=== PATIENT | female | born 1990 | race Caucasian/White ===

== ENCOUNTER → 2017-11-01 18:09 | Outpatient (CLI) | payer OTHER, SELFPAY ==
[2017-11-06 12:09] LABS: HPV Reflexed? NOT INDICATED
== END ==
PROVIDERS: Visit Provider Obstetrics & Gynecology
DX: Z12.4 Encounter for screening for malignant neoplasm of cervix (principal); Z01.419 Encounter for gynecological examination (general) (routine) without abnormal findings
CPT/HCPCS: 88175; G0145

== ENCOUNTER → 2018-01-17 09:19 | Outpatient (CLI) | payer OTHER, SELFPAY ==
[2018-01-17 13:19] LABS: Hematocrit 41.8 % (37-47); Hemoglobin 13.4 g/dl (12.0-15.0); Mean Corp Hgb Conc 32.1 g/gl (32-36); Mean Corpuscular Hgb 28.8 pg (27.0-32.0); Mean Corpuscular Volume 89.9 fL (81-99); Mean Platelet Vol. 11.3 fl (6.2-12.0); Platelet Count 305 K/mm3 (150-450); RBC Distribution Width SD 42.2 fl (35.1-43.9); Red Blood Count 4.65 M/mm3 (4.2-5.4); White Blood Count 8.8 K/mm3 (4.4-11.0)
[2018-01-17 13:29] LABS: Scan Indicated on CBC? Y/N NO
[2018-01-17 13:39] LABS: Hemoglobin A1c 5.9 % (4.2-6.3); Progesterone Level 0.52 ng/mL (See Comment); Vitamin D,25 Hydroxy 12.6 ng/mL (29.95-100.01)
[2018-01-17 14:56] LABS: ALB/GLOB Ratio 0.9 RATIO (0.9-2.4); AST(SGOT) 23 U/L (15-37); Alanine Aminotransfer ALT/SGPT 35 U/L (13-56); Albumin, Serum 3.7 g/dL (3.2-5.0); Alkaline Phosphatase 70 U/L (45-117); Anion Gap 8 (5-15); BUN 12 mg/dL (7-18); BUN/Creat Ratio 20.9 RATIO (10-20); Calcium,Total 8.6 mg/dL (8.5-10.1); Chloride 107 mmol/L (98-107); Cholesterol 219 mg/dL (200); Creatinine, Serum 0.57 mg/dL (0.55-1.02); EST Glomerular Filtration Rate 135 mL/min (>60); Est Glom Filt Rate - Afr Amer 163 mL/min (>60); Estradiol 43.2 pg/mL; Follicle Stimulating Hormone 6.1 mIU/mL; Free T3 3.1 pg/mL (2.18-3.98); Globulin 4.3 g/dL (2.2-4.2); Glucose 92 mg/dL (74-106); High Density Lipoprotein 39 mg/dL; Prolactin 7.2 ng/mL; Sodium Level 142 mmol/L (136-145); T4 Free Direct 0.91 ng/dL (0.76-1.46); Thyroid Stim Hormone (TSH) 1.04 uIU/mL (0.358-3.74); Triglycerides 167 mg/dL; Very Low Density Lipoprotein 33 mg/dL (5-40)
[2018-01-18 12:13] LABS: DHEA Sulfate 220.3 ug/dL (84.8-378.0)
[2018-01-19 10:15] LABS: Sex Hormone-binding Globulin 29.7 nmol/L (24.6-122.0)
[2018-01-21 17:55] LABS: GGTP 26 U/L (5-55); Luteinizing Hormone 1.8 mIU/mL
[2018-01-24 14:26] LABS: 17-Hydroxyprogesterone < 10 ng/dL (.)
== END ==
PROVIDERS: Visit Provider Obstetrics & Gynecology
DX: N91.4 Secondary oligomenorrhea (principal); Z86.32 Personal history of gestational diabetes; Z68.42 Body mass index [BMI] 45.0-49.9, adult
CPT/HCPCS: 36415; 80053; 80061; 82306; 82533; 82627; 82670; 82977; 83001; 83002; 83036; 83498; 84144; 84146; 84270; 84403; 84439; 84443; 84481; 85027; 82626

== ENCOUNTER → 2019-06-02 14:14 | Outpatient (CLI) | payer OTHER, SELFPAY ==
[2019-06-02 20:50] LABS: Chlamydia Trachomatis by PCR Negative (Negative); Neisserai gonorrhoeae by PCR Negative (Negative); Probe Check PASS; Sample Adequacy Control PASS; Specimen Processing Control PASS
== END ==
PROVIDERS: Visit Provider Obstetrics & Gynecology
DX: Z11.3 Encounter for screening for infections with a predominantly sexual mode of transmission (principal)
CPT/HCPCS: 87491; 87591

== ENCOUNTER → 2019-06-10 09:52 | Outpatient (CLI) | payer OTHER, SELFPAY ==
[2019-06-10 10:43] LABS: Absolute Lymphocyte Count 1.89 X10^3/uL (0.83-4.51); Absolute Neutrophil Count 8.4 X10^3/uL (2.0-7.7); Basophil# 0.04 X10^3/uL; Basophil% 0.4 % (0-1); Eosinophil# 0.17 X10^3/uL; Eosinophils% 1.5 % (0-5); Hematocrit 42.2 % (37-47); Hemoglobin 14.4 g/dL (12.0-15.0); Lymphocyte # 1.89 X10^3/ul (4.0); Lymphocyte % 16.7 % (19-41); Mean Corp Hgb Conc 34.1 g/dL (32-36); Mean Corpuscular Hgb 29.6 pg (27.0-32.0); Mean Corpuscular Volume 86.8 fL (81-99); Mean Platelet Vol. 11.1 fl (6.2-12.0); Monocyte% 6.2 % (0-10); NRBC Flagged by Analyzer 0 % (0-5); Neutrophil # 8.44 X10^3/uL (2.7-7.7); Neutrophil % 74.4 % (47-70); Platelet Count 287 K/mm3 (150-450); RBC Distribution Width CV 12.2 % (11.6-14.6); RBC Distribution Width SD 38.7 fl (35.1-43.9); Red Blood Count 4.86 M/mm3 (4.2-5.4); White Blood Count 11.3 K/mm3 (4.4-11.0)
[2019-06-10 10:45] LABS: Color, Urine Yellow (Yellow); Glucose, Dipstick Normal (Normal); Ketone-Dipstick Negative (Negative); Leukocyte Esterase-Dipstick Negative /ul (Negative); Nitrite-Dipstick Negative (Negative); Occult Blood-Urine Negative /ul (Negative); Protein-Dipstick Negative (Negative); Urine Bilirubin Dipstick Negative (Negative); Urine Clarity Clear (Clear); Urine Urobilinogen Normal (Normal)
[2019-06-10 10:56] LABS: Amphetamine Urine VISTA NEGATIVE (<1000 ng/mL); Barbiturate Urine VISTA NEGATIVE (< 200 ng/mL); Benzodiazepine Urine VISTA NEGATIVE (< 200 ng/mL); Cocaine Urine VISTA NEGATIVE (< 300 ng/mL); Ecstacy Urine VISTA NEGATIVE (< 500 ng/mL); Methadone Urine VISTA NEGATIVE (< 300 ng/mL); PCP Urine VISTA NEGATIVE (< 25 ng/mL); THC Urine VISTA POSITIVE (< 50 ng/mL); Vista UDS pH Range 6
[2019-06-10 11:04] LABS: Glucose Challenge Gest 1H 50g 171 mg/dL (70-140); Thyroid Stim Hormone (TSH) 1.16 uIU/mL (0.358-3.74)
[2019-06-10 12:10] LABS: HIV - WCH Non-Reactive (Nonreactive); Hepatitis B Surface Antigen Non-Reactive (Nonreactive); Hepatitis C Antibody Non-Reactive (Nonreactive); Rubella IgG 22.4 IU/mL
[2019-06-10 16:20] LABS: Vitamin D,25 Hydroxy 14.1 ng/mL (29.95-100.01)
[2019-06-18 01:48] LABS: Prenatal RPR NONREACTIVE (NONREACTIVE)
== END ==
PROVIDERS: Visit Provider Obstetrics & Gynecology
DX: Z34.81 Encounter for supervision of other normal pregnancy, first trimester (principal)
CPT/HCPCS: 36415; 80307; 81002; 82306; 82950; 84443; 85025; 86703; 86762; 86803; 87340

== ENCOUNTER → 2019-08-27 06:55 | Outpatient (CLI) | payer OTHER, SELFPAY ==
[2019-08-27 08:19] LABS: Glucose GTT-Gestation. Fasting 88 mg/dL (<105)
[2019-08-27 08:43] LABS: Glucose GTT-Gestational 1 Hr 210 mg/dL (<190)
[2019-08-27 10:07] LABS: Glucose GTT-Gestational 2 Hr 199 mg/dL (<165)
[2019-08-27 11:06] LABS: Glucose GTT-Gestational 3 Hr 89 L (<145)
== END ==
PROVIDERS: Referring Provider Obstetrics & Gynecology; Visit Provider Obstetrics & Gynecology
DX: O24.912 Unspecified diabetes mellitus in pregnancy, second trimester (principal); Z3A.00 Weeks of gestation of pregnancy not specified
CPT/HCPCS: 36415; 82951; 82952

== ENCOUNTER 2019-10-06 15:30 | Outpatient (RCR) | payer OTHER, SELFPAY | END 2019-10-06 23:59 | LOC: DC 15:30 | PROVIDERS: Visit Provider Obstetrics & Gynecology | DX: Z71.3 Dietary counseling and surveillance (principal); O24.419 Gestational diabetes mellitus in pregnancy, unspecified control | CPT/HCPCS: 97802 ==

== ENCOUNTER 2019-10-13 11:45 | Outpatient (RCR) | payer OTHER, SELFPAY | END 2019-11-05 23:59 | LOC: DC 11:45 | PROVIDERS: Visit Provider Obstetrics & Gynecology | DX: Z71.3 Dietary counseling and surveillance (principal); O24.419 Gestational diabetes mellitus in pregnancy, unspecified control; Z3A.00 Weeks of gestation of pregnancy not specified ==

== ENCOUNTER 2019-12-01 11:33 | Outpatient (CLI) | payer OTHER, SELFPAY ==
[2019-12-01 11:49] VITALS: BMI 44.1
[2019-12-01 11:58] VITALS: BP 135/66; PULSE 102; O2SAT 92
[2019-12-01 12:30] LABS: Mucous, Urine 0 SEEN /hpf (<or=2+)
[2019-12-01 12:50] LABS: Color, Urine Yellow (Yellow); Glucose, Dipstick Normal (Normal); Ketone-Dipstick Negative (Negative); Leukocyte Esterase-Dipstick 100 /ul (Negative); Nitrite-Dipstick Negative (Negative); Occult Blood-Urine Negative /ul (Negative); Protein-Dipstick Negative (Negative); Urine Bilirubin Dipstick Negative (Negative); Urine Clarity Clear (Clear); Urine Urobilinogen Normal (Normal)
[2019-12-01 12:56] VITALS: PULSE 97; TEMP 36.9
[2019-12-01 12:57] VITALS: BP 138/69; PULSE 97
[2019-12-01 13:08] LABS: Bacteria 3+ /hpf (None Seen); Red Blood Cells-Urine 0-5 SEEN /hpf (0-5); Squamous Epithelial Cells - UA 0-5 SEEN /hpf (5-10); White Blood Cells 0-5 SEEN /hpf (0-5)
--- NOTE | 2019-12-01 17:00 | OB.TRI.HP_ITS ---
- Problem List (1) Decreased movement Status: Acute Qualifiers: Fetus number: single or unspecified fetus Trimester: third trimester Qualified Code(s): O36.8130 - Decreased movements, third trimester, not applicable or unspecified (2) 32 weeks gestation of Status: Acute History of Present Illness Date of Service: 12/01/19 Was patient seen by the physician?: Yes Reason For Visit: NON STRESS TEST Date of Service: 12/01/19 Final DODIE: 01/25/20 Gestational age: 32 Weeks and 1 Days History of Present Illness: Called into office with decreased FM and was advised to go to for NST Allergies ferrous fumarate [From 1 + Iron] Allergy (Verified 12/01/19 12:06) Rash folic acid [From 1 + Iron] Allergy (Verified 12/01/19 12:06) Rash Penicillins Allergy (Verified 12/01/19 12:05) Rash vit,tx calc,iron,folic acd(less thn 1 mg) [From 1 + Iron] Allergy (Verified 12/01/19 12:06) Rash vitamins with calcium [From 1 + Iron] Allergy (Verified 12/01/19 12:06) Rash Laboratory Studies: Laboratory Tests 12/01/19 Range/Units 12:15 Urine Color Yellow (Yellow) Urine Clarity Clear (Clear) Urine pH 7.0 (5.0 - 8.0) Ur Specific Eagar 1.010 (1.002-1.030) Urine Protein Negative (Negative) mg/dl Urine Glucose (UA) Normal (Normal) mg/dl Urine Ketones Negative (Negative) mg/dl Urine Occult Blood Negative (Negative) /ul Urine Nitrite Negative (Negative) Urine Bilirubin Negative (Negative) mg/dL Urine Urobilinogen Normal (Normal) mg/dl Ur Leukocyte Esterase 100 H (Negative) /ul Urine RBC 0-5 SEEN (0-5) /hpf Urine WBC 0-5 SEEN (0-5) /hpf Ur Squamous Epith Cells 0-5 SEEN (5-10) /hpf Urine Bacteria 3+ (None Seen) /hpf Urine Mucus 0 SEEN (<or=2+) /hpf Review of Systems Constitutional: Denies: Chills, Fever, Weight Change HEENT: Denies: Head Aches, Sinus Congestion, Sinus Drainage Cardiovascular: Denies: Chest Pain, Palpitations Respiratory: Denies: Cough, Shortness of breath at rest, Sputum production Gastrointestinal: Reports: Abdominal Pain - lower abdominal, ligament pain. Denies: Nausea, Vomiting Genitourinary: Denies: Dysuria Musculoskeletal: Denies: Joint Pain, Joint Tenderness Skin: Denies: Rash, Wounds Neurological: Denies: Numbness, Tingling, Focal weakness Psychiatric: Denies: Anxiety, Depression, Homicidal Ideations, Suicidal Ideations Hematologic/ Lymphatic: Denies: Easy Bruising, Easy Bleeding Physical Exam Vitals: Vital Signs Temp Pulse BP Pulse Ox 98.5 F 97 138/69 H 92 12/01/19 12:56 12/01/19 12:57 12/01/19 12:57 12/01/19 11:58 General: Alert, Oriented x3, No apparent distress HEENT: Atraumatic, Normocephalic. Negative for: Thyromegaly, Lymphadenopathy Cardiovascular: Regular rate, Regular Rhythm Lungs: Clear to auscultation Abdomen: Bowel Sounds Present, Gravid Neurological: Deep Tendon Reflexes 2+/4 and Symmetrical, Neuro grossly intact DIRECTOR OF ACQUISITION MARKETING: Normal external genitalia. Negative for: Vulvar lesions Estimated gestational size: Appropriate for gestational size Presentation: Cephalic NST - FHR Rate Baby A Baseline: 130 Variability:: Moderate Accelerations:: 15 x 15 Decelerations:: None NST Reactive:: Yes FHR Category:: Category I Uterine Activity:: quiet Impression/Plan A/P: at 32 weeks gestation here with decreased FM Upon arrival has +FM NST reactive Category I No uterine contractions noted Education given on round ligament pain and discomfort To follow up in office as needed
== END 2019-12-01 13:00 | disposition home or self-care (01) ==
LOC: WPOUT 11:35 → WP 11:38
PROVIDERS: Obstetrics & Gynecology; Referring Provider Obstetrics & Gynecology; Visit Provider Obstetrics & Gynecology
DX: O36.8130 Decreased fetal movements, third trimester, not applicable or unspecified (principal); Z3A.32 32 weeks gestation of pregnancy; Z88.0 Allergy status to penicillin; O26.893 Other specified pregnancy related conditions, third trimester; R10.2 Pelvic and perineal pain
CPT/HCPCS: 59025; 59050; 81001; 87086; 87088; 99218; G0378

== ENCOUNTER → 2019-12-09 15:53 | Outpatient (CLI) | payer OTHER, SELFPAY ==
[2019-12-01 11:49] VITALS: BMI 44.1
[2019-12-09 17:00] LABS: Hematocrit 39.7 % (37-47); Hemoglobin 13.2 g/dL (12.0-15.0); Mean Corp Hgb Conc 33.2 g/dL (32-36); Mean Corpuscular Hgb 28.9 pg (27.0-32.0); Mean Corpuscular Volume 86.9 fL (81-99); Mean Platelet Vol. 12.1 fl (6.2-12.0); Platelet Count 234 K/mm3 (150-450); RBC Distribution Width CV 12.4 % (11.6-14.6); RBC Distribution Width SD 38.5 fl (35.1-43.9); Red Blood Count 4.57 M/mm3 (4.2-5.4); White Blood Count 12.4 K/mm3 (4.4-11.0)
[2019-12-09 17:29] LABS: ALB/GLOB Ratio 0.6 RATIO (0.9-2.4); AST(SGOT) 13 U/L (15-37); Alanine Aminotransfer ALT/SGPT 18 U/L (13-56); Albumin, Serum 2.7 g/dL (3.2-5.0); Alkaline Phosphatase 102 U/L (45-117); Anion Gap 10 (5-15); BUN 6 mg/dL (7-18); BUN/Creat Ratio 15.7 RATIO (10-20); Calcium,Total 8.7 mg/dL (8.5-10.1); Chloride 109 mmol/L (98-107); Creatinine, Serum 0.38 mg/dL (0.55-1.02); EST Glomerular Filtration Rate 214 mL/min (>60); Est Glom Filt Rate - Afr Amer 259 mL/min (>60); Globulin 4.5 g/dL (2.2-4.2); Glucose 81 mg/dL (74-106); Potassium 3.6 mmol/L (3.5-5.1); Protein, Total 7.2 g/dL (6.4-8.2); Sodium Level 139 mmol/L (136-145); Uric Acid 5.2 mg/dL (2.6-6.0)
== END ==
PROVIDERS: Visit Provider Obstetrics & Gynecology
DX: O14.13 Severe pre-eclampsia, third trimester (principal); Z3A.00 Weeks of gestation of pregnancy not specified
CPT/HCPCS: 36415; 80053; 84550; 85027

== ENCOUNTER 2019-12-23 10:11 | Outpatient (RCR) | payer OTHER, SELFPAY ==
[2019-12-22 10:42] VITALS: BMI 44.1
--- NOTE | 2019-12-23 11:04 | HP.PTEVAL_ITS ---
Patient's Visit Information YANA ROMAN is a 29 year old F referred to Physical Therapy by Dr. Heather Sumner MD with a diagnosis of back pain and pelvic pain. Date of Evaluation: 12/23/19 Physical Therapist: Rafael Fleming, DPT, OCS, CSCS - Visit Plan Duration: Nothing currently schedul Plan: no in clinic visits required. I educated her on benefits of SI belt which will help her the most adn she will use a belt at home or get one from drug store. I educated her on Kegels 5 sec 10-20 x throughout day adn with normally painful trasnfers. I educated her on benefits of pool exercise including walking, hip flex/ext, abd/add in stance and float adn stretching of quads. She has a pool and will attempt these at home as safety allows instead of coming to therapy 3x/week. Will call if she has questions or needs to get into therapy before January 19 due date, otherwise will d/c chart after that time. - Subjective Pelvic pain R>L. Present for 4 months slowly worsening. Last 3 weeks is unbearable as stadning adn walking hurts and rolling in bed brings her to tears. Is 35 weeks. Did not have pain prior. Had normal back pain prior. Takes tyenol and it does not help. Keeps her up at night as she got 3 hours of normal 6-8. Is set up with chiropractor and did alignemnt yesterdaya dn will continue couple times per week. Was employed until 30 weeks but then maternity leave due to unbearable pain as she has to be on feet all day. 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 Sitting is best positions. Oni be induced at 39 weeks at the latest possibly sooner. Is a gestational diabetic. May be preeclampsic - Pain groins/pelvis Pain Intensity (Out of 10): 0 Pain Intensity Range: 0, 8 Comment: sitting OK. - Objective Pt has painful expressions as she trasnfers on mat and to/fro sit. btu can do so I. Has I gait with wide MEDHAT. Pain L groin with each step. Pain is much less with SI belt placed around pelvis. Kegels help a little bit. LB aROM WFL adn withotu increased pain. Tightness hip flexors and quads is obvious and hurts to stretch. AROM B hips and knees WFL. Strength hips and knees and akles 4+/5 with sligh pain with L hip flexiona nd abduction in anterior L groin. reflexes patella and achilles is 2/3 B. Sensation LE WNL to gross light touch. Tender L>R hip flexors and anterior hip soft tissue. - Goals Goal 1:: Patient I in appropriate management activities for pain Goal Time Frame: current met - Rehabilitation Potential Physical Therapy Diagnosis: Pelvic pain due to her Rehabilitation Potential: Questionable - Anticipated Interventions Patient/Client Instruction: Educate patient on: Condition For the Purpose of:: To decrease pain Thank you for the opportunity to evaluate your patient. For Medicare and Medicare HMO plans, please review the plan of care and approve it. It will need to be FAXED BACK to us at [phone] for Medicare purposes. For Medicare only, by signing this I certify the plan of care. Please let me know if there are questions or concerns regarding this plan of care. Physician Si gnature: Date:
== END 2019-12-23 19:00 ==
LOC: PT 10:11
PROVIDERS: Referring Provider Obstetrics & Gynecology; Visit Provider Obstetrics & Gynecology
DX: O26.893 Other specified pregnancy related conditions, third trimester (principal); M54.9 Dorsalgia, unspecified; R10.2 Pelvic and perineal pain; Z3A.14 14 weeks gestation of pregnancy
CPT/HCPCS: 97162

== ENCOUNTER → 2019-12-29 15:43 | Outpatient (CLI) | payer OTHER, SELFPAY ==
[2019-12-22 10:42] VITALS: BMI 44.1
[2019-12-29 16:18] LABS: Hematocrit 41.5 % (37-47); Hemoglobin 13.7 g/dL (12.0-15.0); Mean Corpuscular Hgb 28.2 pg (27.0-32.0); Mean Corpuscular Volume 85.6 fL (81-99); Platelet Count 254 K/mm3 (150-450); RBC Distribution Width SD 39.5 fl (35.1-43.9); Red Blood Count 4.85 M/mm3 (4.2-5.4); White Blood Count 12.7 K/mm3 (4.4-11.0)
[2019-12-29 16:32] LABS: Protein, Urine (Random) 21.2 mg/dL (<11.9)
[2019-12-29 17:19] LABS: ALB/GLOB Ratio 0.6 RATIO (0.9-2.4); AST(SGOT) 14 U/L (15-37); Alanine Aminotransfer ALT/SGPT 17 U/L (13-56); Albumin, Serum 2.8 g/dL (3.2-5.0); Alkaline Phosphatase 126 U/L (45-117); Anion Gap 11 (5-15); BUN 6 mg/dL (7-18); BUN/Creat Ratio 13.6 RATIO (10-20); Calcium,Total 9.3 mg/dL (8.5-10.1); Chloride 106 mmol/L (98-107); Creatinine, Serum 0.44 mg/dL (0.55-1.02); EST Glomerular Filtration Rate 181 mL/min (>60); Est Glom Filt Rate - Afr Amer 219 mL/min (>60); Glucose 80 mg/dL (74-106); Protein, Total 7.8 g/dL (6.4-8.2); Sodium Level 136 mmol/L (136-145); Uric Acid 4.6 mg/dL (2.6-6.0)
== END ==
LOC: WOBLAB 15:44
PROVIDERS: Visit Provider Obstetrics & Gynecology
DX: Z36.85 Encounter for antenatal screening for Streptococcus B (principal); Z3A.00 Weeks of gestation of pregnancy not specified; O13.9 Gestational [pregnancy-induced] hypertension without significant proteinuria, unspecified trimester
CPT/HCPCS: 36415; 80053; 82570; 84156; 84550; 85027; 87077; 87081; 87186

== ENCOUNTER 2020-01-15 05:05 | Inpatient (IN) | payer OTHER, SELFPAY ==
[2019-12-22 10:42] VITALS: BMI 44.1
[2020-01-15] VITALS (14 sets, daily range): BP systolic 102–142; BP diastolic 40–86; PULSE 65–102; RESP 16–20; TEMP 36.2–36.7; O2SAT 97–100; BMI 45.6
--- NOTE | 2020-01-15 | FALS_PTH ---
PATIENT: YANA ROMAN LOC: [facility] U#:[id number] AGE/SX: 29/F ROOM: WP007 RE01/15/[address]: Dr. Heather Sumner MD : 1990 BED: 1 DIS: 01/17/2020 SPEC #: [id number] RECD: 01/15/20 13:08 STATUS: JOE RERyan #: [id number] YOMAIRA: 01/15/20 00:[address]: Heather Canas DEPT: SURGICAL PATHOLOGY RECD BY: Thaddeus Herman ENTERED: 01/15/20 13:09 SP TYPE: FALL TUBES OTHR DR: No Primary Care Phys Tissues: A - Placenta, NOS B - Fallopian tube Procedures: Surgery Specimen Level II Surgery Specimen Level V HEADER OPERATION: Primary section, tubal ligation PRE-OP DIAGNOSIS: Hypertension, gestational diabetes, 38+ wga TISSUE SUBMITTED: A - Placenta, B - Fallopian tubes MICROSCOPIC DIAGNOSIS A. Terry placenta (753 gm): Umbilical cord - trivascular with no inflammation. Placental membranes - no significant pathologic change. Placental disc - organizing intraparenchymal hemorrhage, Roseline-Rodolfo change and intravillous congestion. B. Right and left fallopian tubes, bilateral salpingectomies: Two complete segments of fallopian tubes with no pathologic change. AM:lucinda 01/19/20 MICROSCOPIC DESCRIPTION Slides are reviewed. GROSS DESCRIPTION A - SPECIMEN: PLACENTA / CLINICAL INFORMATION: A. Weight: 3.945 kg B. Gestational Age: 38 weeks C. Sex: Male PLACENTAL WEIGHT (POST FIXATION): 753 gm PLACENTAL DIMENSIONS: 19 x 18 x 4 cm PLACENTAL SHAPE: Usual ovoid PLACENTAL WEIGHT FOR GESTATIONAL AGE: Over 99th percentile MEMBRANES - Present A. Insertion: Marginal B. Site of rupture from edge: 4 cm from edge of placental disc C. Color of membrane: Stinson-mays D. Abnormalities: None UMBILICAL CORD - Present A. Color: Stinson-mays B. Insertion: Eccentric C. Length: 52 cm D. Diameter: 1.5 cm E. Number of vessels: Three F. Abnormalities: None PLACENTAL DISC - Present A. Color of surface: Stinson-mays B. surface abnormalities: None C. Maternal cotyledons: Intact with minimal tears D. Attached retro placental clot: No clot E. Cut surface: Dark red and spongy F. Lesions: One stinson-white lesion measuring 1 x 1 x 0.5 cm G. Separate clot: 8 x 5 x 1 cm SECTIONS SUBMITTED: 1. Umbilical cord ( end notched) 2. Umbilical cord, placental end 3. Membrane roll, lesion 4. Placental disc, and maternal surfaces 5. Placental disc, and maternal surfaces 6. Placental disc, and maternal surfaces AM:lucinda 01/18/20 B - Received in fixative is one container labeled with the patient's name and designated bilateral fallopian tubes, suture in left tube. The specimen consists of bilateral fallopian tubes including fimbrial ends. The right tube measures 8 cm in length and up to 1 cm in diameter and the left tube measures 6 cm in length and up to 1 cm in diameter. Sections reveal unremarkable cut surfaces. Proj Mgr sections are submitted in two cassettes as follows: 1 - right fallopian tube, 2 - left fallopian tube. / SJ:lucinda 01/15/20 TC:5 CPT: 10470, 59369 x2
[2020-01-15] MEDS: Lactated Ringers 1,000 ML 999 ML IV (05:40)
[2020-01-15 05:41] LABS: Bedside Glucose 91 mg/dL (70-110)
[2020-01-15] MEDS: Acetaminophen 500 MG Tablet 1000 MG PO ×3 (06:06→19:44)
[2020-01-15 06:11] LABS: Absolute Lymphocyte Count 2.21 X10^3/uL (0.83-4.51); Absolute Neutrophil Count 8.3 X10^3/uL (2.0-7.7); Basophil# 0.04 X10^3/uL; Basophil% 0.3 % (0-1); Eosinophil# 0.32 X10^3/uL; Eosinophils% 2.7 % (0-5); Hematocrit 38.6 % (37-47); Hemoglobin 12.5 g/dL (12.0-15.0); Lymphocyte # 2.21 X10^3/ul (4.0); Lymphocyte % 18.6 % (19-41); Mean Corp Hgb Conc 32.4 g/dL (32-36); Mean Corpuscular Hgb 28.3 pg (27.0-32.0); Mean Corpuscular Volume 87.3 fL (81-99); Mean Platelet Vol. 12.9 fl (6.2-12.0); Monocyte# 0.88 X10^3/uL; Monocyte% 7.4 % (0-10); NRBC Flagged by Analyzer 0 % (0-5); Neutrophil # 8.25 X10^3/uL (2.7-7.7); Neutrophil % 69.7 % (47-70); Platelet Count 188 K/mm3 (150-450); RBC Distribution Width CV 13.5 % (11.6-14.6); RBC Distribution Width SD 41.7 fl (35.1-43.9); Red Blood Count 4.42 M/mm3 (4.2-5.4); White Blood Count 11.9 K/mm3 (4.4-11.0)
[2020-01-15] MEDS: Lactated Ringers 1,000 ML 150 ML IV (06:42)
[2020-01-15] MEDS: Sodium Citrate/Citric Acid 30 ML UDC PO (07:14)
--- NOTE | 2020-01-15 07:19 | HP.PCM_ITS ---
- Problem List (1) 38 weeks gestation of Status: Acute (2) Gestational hypertension Status: Acute (3) Gestational diabetes mellitus (GDM) Status: Acute Qualifiers: Gestational diabetes mellitus control: diet-controlled Trimester: third trimester Qualified Code(s): O24.410 - Gestational diabetes mellitus in , diet controlled History Date of Admission: 01/15/20 Final DODIE: 01/25/20 Final DODIE Source: US <20 weeks Gestational age: 38 Weeks and 4 Days History of this : This is a 29 year-old, G [3], P [1011], at 38 weeks gestational age with hx GDM, gestational hypertension. Medical History: Medical History (Last Updated 01/15/20 @ 07:[address] Heather Sumner MD) PCOS (polycystic ovarian syndrome) E28.2 Anxiety F41.9 Bilateral headaches R51 Gestational diabetes O24.419 History of loss Z87.59 Personal history of gallstones Z87.19 Z34.90 Surgical History: Surgical History (Last Updated 01/15/20 @ 20:[address] Heather Sumner MD) S/P cholecystectomy Z90.49 2019 Allergies Penicillins Allergy (Mild, Verified 01/15/20 06:18) Rash yeast infection ferrous fumarate [From 1 + Iron] Allergy (Verified 12/01/19 12:06) Rash folic acid [From 1 + Iron] Allergy (Verified 12/01/19 12:06) Rash vit,tx calc,iron,folic acd(less thn 1 mg) [From 1 + Iron] Allergy (Verified 12/01/19 12:06) Rash vitamins with calcium [From 1 + Iron] Allergy (Verified 12/01/19 12:06) Rash Home Medications: Home Medications DiphenhydrAMINE [Benadryl] 25 mg PO PRN PRN 12/01/19 Tylenol Extra Strength 1,000 mg PO PRN PRN 12/01/19 Smoking Status: Never smoker Alcohol: None Substance Use Type: Marijuana, Sleep Aides Number of Fetus(es): 1 NST - FHR Rate Baby A Baseline: 144 History Past Pregnancies: Past Pregnancies Delivery Date Name GA/ Weeks Outcome Route Wt Sex Labor Length Anesthesia Delivery Location Provider FOB 12/2013 39 , shoulder dystocia [id number] F 14 Epidural Med [facility] 11/2015 5 SAB SAB [facility] Labs: Mom's Labs & Results 01/15/20 01/15/20 01/15/20 05:26 05:40 05:40 WBC 11.9 H RBC 4.42 Hgb 12.5 Hct 38.6 MCV 87.3 MCH 28.3 MCHC 32.4 RDW Std Deviation 41.7 RDW Coeff of Kunal 13.5 Plt Count 188 MPV 12.9 H Immature Gran % (Auto) 1.300 H Neut % (Auto) 69.7 Lymph % (Auto) 18.6 L Stokes % (Auto) 7.4 Eos % (Auto) 2.7 Baso % (Auto) 0.3 Absolute Neuts (auto) 8.3 H Absolute Lymphs (auto) 2.21 Nucleated RBC % 0 Urine Opiates Screen Urine Methadone Screen Ur Barbiturates Screen Ur Phencyclidine Scrn Ur Amphetamines Screen U Methamphetamin-MDMA U Benzodiazepines Scrn Urine Cocaine Screen U Cannabinoids Screen Ur Drug Screen Comment POC Glucose 91 Blood Type O POSITIVE Antibody Screen NEGATIVE 01/15/20 07:00 WBC RBC Hgb Hct MCV MCH MCHC RDW Std Deviation RDW Coeff of Kunal Plt Count MPV Immature Gran % (Auto) Neut % (Auto) Lymph % (Auto) Stokes % (Auto) Eos % (Auto) Baso % (Auto) Absolute Neuts (auto) Absolute Lymphs (auto) Nucleated RBC % Urine Opiates Screen Pending Urine Methadone Screen Pending Ur Barbiturates Screen Pending Ur Phencyclidine Scrn Pending Ur Amphetamines Screen Pending U Methamphetamin-MDMA Pending U Benzodiazepines Scrn Pending Urine Cocaine Screen Pending U Cannabinoids Screen Pending Ur Drug Screen Comment POC Glucose Blood Type Antibody Screen Course Did the patient receive Yes care? Labs Blood Type: O RH: POSITIVE RPR/VDRL/Syphilis Nonreactive Rubella status Immune HbSAg Negative Date Done: 06/10/19 Chlamydia Negative Gonorrhea Negative HIV/AIDS Non-Reactive Group B Strep: Positive Current Obstetrical History Gestational Diabetes Yes Incompetent Cervix No Infertility No IUGR No Macrosomia No Hypertension/Pre-eclampsia No Placenta Previa/Abruption No PTL/PROM No Uterine anomaly No Oligohydramnios No Polyhydramnios No Multiple gestation No Past Medical History Asthma No Diabetes Yes: PT STATES BORDERLINE TYPE II Hypertension Yes Heart disease No Mitral valve prolapse No Neurologic/Seizure disorder/ Yes: MIGRAINES Migraines Kidney disease No Liver disease No Varicosities No Clotting disorders/Hx of DVT No Thyroid Dysfunction No Other medical diseases No Psychiatric disorders Yes: ANXIETY, DEPRESSION Major trauma No Abnormal PAP smear No Sleep apnea No Mammogram in the last 2 years No Medications Taken During Dose/Freq.: [Diabetic] 750/DAILY Last Date/Time of Medication NOT TAKEN SINCE EARLY Taken: [Diabetic] Reason for taking medication [ METFORMIN Diabetic] Social History Marital Status: Alleged father VINH Hx Smoking No Smoking Status Never smoker Substance Use Type Marijuana,Sleep Aides How long have you used 1 substances (years)? What date/time did you last ABOUT 2 WEEKS use any of the above? Number of Visits: 14 Review of Systems Constitutional: Denies: Chills, Fever Eyes: Denies: Blurred vision, Vision Change HEENT: Denies: Head Aches, Visual Changes Cardiovascular: Denies: Chest Pain Respiratory: Denies: Cough, Shortness of Breath Gastrointestinal: Denies: Abdominal Pain, Nausea, Vomiting Gynecological: Denies: Vaginal bleeding Physical Exam Vitals: Vital Signs Temp Pulse BP Pulse Ox 97.6 F L 102 H 142/86 H 97 01/15/20 05:30 01/15/20 05:30 01/15/20 05:30 01/15/20 05:30 General: Alert, Oriented x3, Cooperative, No apparent distress HEENT: Atraumatic, Normocephalic Cardiovascular: Regular rate, Regular Rhythm Lungs: Normal air movement Abdomen: Soft, Non Tender, Non-Distended, Gravid Neurological: Neuro grossly intact Estimated gestational size: Appropriate for gestational size Presentation: Cephalic Assessment/Plan All Active Problems (Last Updated 01/15/20 @ 07:[address] Heather Sumner MD) Segmental and somatic dysfunction of lumbar region (Acute) Segmental and somatic dysfunction of sacral region (Acute) Segmental and somatic dysfunction of pelvic region (Acute) Back pain (Acute) 38 weeks gestation of (Acute) Gestational hypertension (Acute) Gestational diabetes mellitus (GDM) (Acute) This is a 29 year-old, G [3], P [1011], at 38 4/7 weeks gestational age. hx GDM, glucose 91 this am hx gestational HTN - no si/sx preeclampsia Proceed with primary for prior hx shoulder dystocia and bilateral salpingectomy for sterilization.
[2020-01-15 07:33] LABS: Amphetamine Urine VISTA NEGATIVE (<1000 ng/mL); Barbiturate Urine VISTA NEGATIVE (< 200 ng/mL); Benzodiazepine Urine VISTA NEGATIVE (< 200 ng/mL); Cocaine Urine VISTA NEGATIVE (< 300 ng/mL); Ecstacy Urine VISTA NEGATIVE (< 500 ng/mL); Methadone Urine VISTA NEGATIVE (< 300 ng/mL); PCP Urine VISTA NEGATIVE (< 25 ng/mL); THC Urine VISTA NEGATIVE (< 50 ng/mL); Vista UDS pH Range 6
--- NOTE | 2020-01-15 08:39 | PCM.OPRPT ---
Problem List (1) 38 weeks gestation of Status: Acute (2) Gestational hypertension Status: Acute Qualifiers: Trimester: third trimester Qualified Code(s): O13.3 - Gestational [-induced] hypertension without significant proteinuria, third trimester (3) Gestational diabetes mellitus (GDM) Status: Acute Qualifiers: Gestational diabetes mellitus control: diet-controlled Trimester: third trimester Qualified Code(s): O24.410 - Gestational diabetes mellitus in , diet controlled Delivery Classification: Scheduled Final DODIE: 01/25/20 Gestational age: 38 Weeks and 4 Days telephone answerer: Diane Hernández Type of Anesthesia:: Spinal Date of Procedure: 01/15/20 Pre-Operative Diagnosis: 1. 38 4/7 weeks gestation. 2. Gestational hypertension. 3. Gestational diabetes. 4. Prior history of shoulder dystocia Post-Operative Diagnosis: 1. 38 4/7 weeks gestation. 2. Gestational hypertension. 3. Gestational diabetes. 4. Prior history of shoulder dystocia Indications: 29yo @ 38 4/7 weeks gestation presents for scheduled primary section for prior history of shoulder dystocia and gestational hypertension. complicated by gestational diabetes which was diet controlled. She was counseled regarding delivery options and declined trial of labor. She also requested tubal sterilization. Indications for : Desires elective sterilization, - - History of shoulder dystocia Description of Procedure: The patient was taken to the operating room and spinal analgesia was administered. She is placed in a dorsal supine position with left lateral tilt. The perineum and abdomen were prepped and draped in sterile fashion. And the spinal was found to be adequate. A Pfannenstiel incision was made using a scalpel and brought down to incise the subcutaneous tissue and rectus fascia at the midline. Subcutaneous tissue was bluntly dissected off the fascia laterally. The fascial incision was dissected laterally and cephalad using curved Rubio scissors. The superior leaflet of the rectus fascia was grasped using Macie clamps and bluntly dissected and sharply dissected from the underlying rectus muscle. In a similar fashion the inferior rectus fascia was dissected from the underlying muscle. The rectus muscles were bluntly at the midline. The peritoneum was identified and entered [sharply]. The bladder blade was placed into the abdomen and the vesicouterine peritoneal fold identified. The fold was incised and a bladder flap created. Bladder blade was then repositioned to the abdomen. A low transverse hysterotomy was made using the [Metzenbaum scissors] to level of the membranes. The hysterotomy was extended bluntly cephalad and caudad. The membranes were then ruptured revealing clear fluid. The head was elevated and brought to the level of the hysterotomy and the delivered revealing a [male] . The cord was doubly clamped and cut after 30 seconds. The was passed to awaiting [nursery personnel]. The placenta was [expressed] from the uterus and appeared intact on inspection. The uterus was exteriorized and cleared of debris. The hysterotomy was then repaired using 0 Vicryl running lock suture. The attention was turned to the right adnexa and the tubal fimbria were identified and the tube isolated. Salpingectomy was performed using the LigaSure device to clamp coagulate and transect the mesosalpinx to the level of the uterine cornua. In similar fashion salpingectomy was also performed on the left. The uterus and adnexa were returned to the abdomen. The bladder blade was repositioned. The hysterotomy remained hemostatic and the anterior cul-de-sac was cleared of debris. The bladder blade was removed. The peritoneum was reapproximated using 2-0 Vicryl running suture. The rectus fascia was closed using 0 strata fix running suture. The subcutaneous tissue was sponge irrigated and small capillary bleeding controlled using the Bovie device. The subcutaneous tissue was reapproximated using 2-0 Vicryl in 2 layers. The skin was closed using 4-0 Monocryl subcuticularly by the MOP HANDLE ASSEMBLER under my supervision. A Mepilex occlusive dressing was placed over the incision. The fundus was firm. The patient was then transferred to the recovery room without complication. Sponge, instrument, and needle counts were correct ?2. Amniotic Membrane Rupture Type: Artificial Amniotic Fluid Description: Clear Placenta Disposition: Sent to Pathology Specimen(s) sent to pathology: placenta Drain: Guerra to straight drain Fluids Replaced: 1500 ml Nuchal Cord Compression: Without compression Cord Vessel Description: 3 Vessels Esitmated Blood Loss (ml): 1000 ml Infant Gender: Male (1 minute): 7 (5 minute): 9 Delayed cord clamping: Yes Antibiotic Given: Ancef 3 grams IV x1 Pt instructed on risks of surgery: Bleeding, Anesthesia Risks, Infection, Failure Rate of 1 to 2%, Injury to surrounding structure(s) including bowel and bladder, Availability of other non-permanent control options Complications: None - Admit VTE Documentation VTE Present on Admission: No VTE Mechan Device Prophylaxis: SCD's VTE Pharm Prophylaxis ordered?: Yes
[2020-01-15] MEDS: Lactated Ringers 1,000 ML 100 ML IV ×3 (09:00→22:47)
[2020-01-15] MEDS: Oxytocin 30 units/NS 500 ml 30 UNITS/500 ML IV.SOLN 167 UNITS IV (09:00)
[2020-01-15 09:53] LABS: Pathology Specimen OB SEE PATHOLOGY REPORT
[2020-01-15] MEDS: HYDROmorphone 1 MG/ML Syringe IV ×3 (11:32→19:45)
[2020-01-15] MEDS: Senna/Docusate Sodium 1 Tablet PO (12:50)
[2020-01-15] MEDS: Heparin Injection (Vial) 5,000 UNIT/ML VIAL 5000 UNIT SC ×2 (15:53→22:46)
[2020-01-15] MEDS: Ketorolac 30 MG/ML Syringe IV ×2 (15:53→20:59)
[2020-01-15] MEDS: 0.9% Saline Lock 10 ML Syringe IV (19:46)
--- NOTE | 2020-01-15 22:20 | NURSING ---
pt has indwelling urinary catheter
[2020-01-15] MEDS: oxyCODONE 5 MG Tablet PO (22:46)
[2020-01-16] MEDS: Acetaminophen 500 MG Tablet 1000 MG PO ×4 (00:03→21:01)
[2020-01-16 00:13] VITALS: BP 115/59; PULSE 77; RESP 18; TEMP 36.6; O2SAT 98
[2020-01-16] MEDS: 0.9% Saline Lock 10 ML Syringe IV ×2 (02:51→04:59)
[2020-01-16] MEDS: Ketorolac 30 MG/ML Syringe IV (02:51)
[2020-01-16] MEDS: oxyCODONE 5 MG Tablet PO ×4 (03:06→20:41)
[2020-01-16 03:22] VITALS: BP 110/51; PULSE 75; RESP 20; TEMP 36.6; O2SAT 97
--- NOTE | 2020-01-16 03:59 | NURSING ---
catheter placement not charted by previous RN
[2020-01-16] MEDS: HYDROmorphone 1 MG/ML Syringe IV (05:00)
[2020-01-16] MEDS: Heparin Injection (Vial) 5,000 UNIT/ML VIAL 5000 UNIT SC ×3 (05:07→22:07)
[2020-01-16 05:26] LABS: Hematocrit 33.1 % (37-47); Hemoglobin 10.6 g/dL (12.0-15.0); Mean Corpuscular Hgb 28.2 pg (27.0-32.0); Mean Platelet Vol. 12.6 fl (6.2-12.0); Platelet Count 161 K/mm3 (150-450); RBC Distribution Width CV 13.2 % (11.6-14.6); RBC Distribution Width SD 41.5 fl (35.1-43.9); Red Blood Count 3.76 M/mm3 (4.2-5.4)
[2020-01-16 05:50] LABS: Bedside Glucose 62 mg/dL (70-110)
[2020-01-16 07:15] LABS: Bedside Glucose 61 mg/dL (70-110)
[2020-01-16 07:15] LABS: Bedside Glucose 68 mg/dL (70-110)
[2020-01-16] MEDS: Ibuprofen 600 MG Tablet PO ×3 (08:13→21:00)
[2020-01-16] MEDS: Senna/Docusate Sodium 1 Tablet PO (08:13)
[2020-01-16 08:15] VITALS: BP 136/74; PULSE 88; RESP 16; TEMP 35.8; O2SAT 98
--- NOTE | 2020-01-16 10:41 | PCM.PN.OB ---
Patient Problems: Active and Suspected Problems (Last Updated 01/15/20 @ 07:[address] Heather Sumnre MD) 38 weeks gestation of (Acute) Gestational hypertension (Acute) Gestational diabetes mellitus (GDM) (Acute) Subjective: Reports significant pain overnight. Pain is manageable this morning. She started the Oxycodone. Passing flatus. Denies nausea or vomiting. Tolerates PO. OOB and voiding without difficulty. Infant latching well. His blood sugars had been low, but now improved. Ashley reports her back and hip pain has resolved 100%. Objective: AVSS - Physical Exam Vitals/I&O's: Vital Signs Temp Pulse Resp BP Pulse Ox 96.5 F L 88 16 136/74 H 98 01/16/20 08:15 01/16/20 08:15 01/16/20 08:15 01/16/20 08:15 01/16/20 08:15 Oxygen Delivery Method Room Air Weight: 113.3 kg Body Mass Index (BMI) 45.6 Intake and Output for Last 24 Hours 01/14/20 01/15/20 01/16/20 23:59 23:59 23:59 Intake Total 5322.33 / 5322.33 988.33 / 988.33 Output Total 525 / 525 600 / 600 Balance 4797.33 / 4797.33 388.33 / 388.33 General: Alert, Oriented x3, Cooperative, No apparent distress HEENT: Atraumatic, Normocephalic Lungs: Clear to auscultation, Normal air movement Cardiovascular: Regular rate, Regular Rhythm, Normal S1, Normal S2 Abdomen: Bowel Sounds Present, Soft, Non Tender, Non-Distended, Obese, - - Lochia scant, fundus firm and nontender Extremities: No edema, No Calf Tenderness Neurological: Neuro grossly intact Psych/Mental Status: Normal Affect, Appropriate, Alert and oriented to time, place, person, mood and affect Laboratory Results 01/16/20 05:20: WBC 9.0, RBC 3.76 L, Hgb 10.6 L, Hct 33.1 L, MCV 88.0, MCH 28.2, MCHC 32.0, RDW Std Deviation 41.5, RDW Coeff of Kunal 13.2, Plt Count 161, MPV 12.6 H 01/16/20 05:41: POC Glucose 62 L 01/16/20 06:20: POC Glucose 61 L 01/16/20 06:40: POC Glucose 68 L Current Medications Acetaminophen (Tylenol) 1,000 mg PO Q6H [facility] Last Admin: 01/16/20 08:13 Dose: 1,000 mg Documented by: Bisacodyl (Dulcolax) 10 mg RECTAL UD PRN PRN Reason: If no BM Heparin Sodium (Porcine) (Heparin Na) 5,000 unit SC Q8 [facility] Last Admin: 01/16/20 05:07 Dose: 5,000 unit Documented by: Hydrocortisone (Hytone) 1 applic TOPICAL TID PRN PRN; Protocol PRN Reason: Discomfort Naloxone HCl 4 mg/ Dextrose 504 mls @ 0 mls/hr IV .Q0M PRN; Protocol PRN Reason: Respiratory depression Ibuprofen (Motrin) 600 mg PO Q6H [facility] Last Admin: 01/16/20 08:13 Dose: 600 mg Documented by: Methylergonovine Maleate (Methergine) 0.2 mg IM X1 PRN PRN Reason: Uterine Atony Naloxone HCl (Narcan) 0.02 mg IV Q1M PRN PRN Reason: RR <10 and pt unresponsive Ondansetron HCl (Zofran) 4 mg IV Q4H PRN PRN PRN Reason: Nausea Oxycodone HCl (Oxyir) 5 - 10 mg PO Q4H PRN PRN PRN Reason: Pain Score 4-10/10 Last Admin: 01/16/20 10:05 Dose: 10 mg Documented by: Prochlorperazine Edisylate (Compazine Iv) 10 mg IV Q6H PRN PRN PRN Reason: NAUSEA Senna/Docusate Sodium (Senokot-S, Alivia-Colace) 0 tablet PO DAILY [facility] Last Admin: 01/16/20 08:13 Dose: 2 tablet Documented by: Simethicone (Mylicon) 80 mg PO PCHS PRN PRN Reason: Indigestion/stomach pain Sodium Chloride () 5 - 15 ml IV UD PRN PRN Reason: SALINE FLUSH Last Admin: 01/16/20 04:59 Dose: 10 ml Documented by: Medical Necessity - Tobacco Use Smoking Status: Never smoker Assessment/Plan All Active Problems (Last Updated 01/15/20 @ 07:[address] Heather Sumner MD) Segmental and somatic dysfunction of lumbar region (Acute) Segmental and somatic dysfunction of sacral region (Acute) Segmental and somatic dysfunction of pelvic region (Acute) Back pain (Acute) 38 weeks gestation of (Acute) Gestational hypertension (Acute) Gestational diabetes mellitus (GDM) (Acute) This is a 29 year-old, G [3], P [2012 POD#1 s/p PLTCS, b/l salpingectomy doing well. -Rh positive -GDMA1 - Fasting blood sugar 61 this am. No further monitoring needed. - -Routine postop care
[2020-01-16 14:40] VITALS: BP 99/45; PULSE 86; RESP 16; TEMP 36.5; O2SAT 99
[2020-01-16 20:40] VITALS: BP 102/57; PULSE 90; RESP 18; TEMP 36.6; O2SAT 98
[2020-01-17] MEDS: oxyCODONE 5 MG Tablet PO ×4 (00:54→14:33)
[2020-01-17 00:57] VITALS: BP 101/48; PULSE 88; RESP 18; TEMP 36.6; O2SAT 97
[2020-01-17] MEDS: Acetaminophen 500 MG Tablet 1000 MG PO ×2 (04:13→08:56)
[2020-01-17] MEDS: Ibuprofen 600 MG Tablet PO ×2 (04:14→08:54)
[2020-01-17] MEDS: Heparin Injection (Vial) 5,000 UNIT/ML VIAL 5000 UNIT SC (05:38)
--- NOTE | 2020-01-17 07:43 | PN.OBGYN_ITS ---
Patient Problems: Active and Suspected Problems (Last Updated 01/15/20 @ 07:[address] Heather Sumner MD) 38 weeks gestation of (Acute) Gestational hypertension (Acute) Gestational diabetes mellitus (GDM) (Acute) Subjective: She is sore, but pain helped with medication. Lochia is scant. It is getting easier to move around. Objective: AVSS - Physical Exam Vitals/I&O's: Vital Signs Temp Pulse Resp BP Pulse Ox 97.8 F 88 18 101/48 L 97 01/17/20 00:57 01/17/20 00:57 01/17/20 00:57 01/17/20 00:57 01/17/20 00:57 Oxygen Delivery Method Room Air Weight: 113.3 kg Body Mass Index (BMI) 45.6 Intake and Output for Last 24 Hours 01/15/20 01/16/20 01/17/20 23:59 23:59 23:59 Intake Total 5322.33 / 5322.33 988.33 / 988.33 Output Total 525 / 525 600 / 600 Balance 4797.33 / 4797.33 388.33 / 388.33 General: Alert, Oriented x3, Cooperative, No apparent distress HEENT: Atraumatic, Normocephalic Lungs: Normal air movement Cardiovascular: Regular rate, Regular Rhythm, Normal S1, Normal S2 Abdomen: Soft, Non Tender, Non-Distended, Obese, - - fundus firm and nontender, incisional dressing c/d/i Extremities: No edema, No Calf Tenderness Neurological: Neuro grossly intact Psych/Mental Status: Normal Affect, Appropriate, Alert and oriented to time, place, person, mood and affect Current Medications Acetaminophen (Tylenol) 1,000 mg PO Q6H [facility] Last Admin: 01/17/20 04:13 Dose: 1,000 mg Documented by: Bisacodyl (Dulcolax) 10 mg RECTAL UD PRN PRN Reason: If no BM Heparin Sodium (Porcine) (Heparin Na) 5,000 unit SC Q8 [facility] Last Admin: 01/17/20 05:38 Dose: 5,000 unit Documented by: Hydrocortisone (Hytone) 1 applic TOPICAL TID PRN PRN; Protocol PRN Reason: Discomfort Naloxone HCl 4 mg/ Dextrose 504 mls @ 0 mls/hr IV .Q0M PRN; Protocol PRN Reason: Respiratory depression Ibuprofen (Motrin) 600 mg PO Q6H [facility] Last Admin: 01/17/20 04:14 Dose: 600 mg Documented by: Methylergonovine Maleate (Methergine) 0.2 mg IM X1 PRN PRN Reason: Uterine Atony Naloxone HCl (Narcan) 0.02 mg IV Q1M PRN PRN Reason: RR <10 and pt unresponsive Ondansetron HCl (Zofran) 4 mg IV Q4H PRN PRN PRN Reason: Nausea Oxycodone HCl (Oxyir) 5 - 10 mg PO Q4H PRN PRN PRN Reason: Pain Score 4-10/10 Last Admin: 01/17/20 05:37 Dose: 10 mg Documented by: Prochlorperazine Edisylate (Compazine Iv) 10 mg IV Q6H PRN PRN PRN Reason: NAUSEA Senna/Docusate Sodium (Senokot-S, Alivia-Colace) 0 tablet PO DAILY [facility] Last Admin: 01/16/20 08:13 Dose: 2 tablet Documented by: Simethicone (Mylicon) 80 mg PO PCHS PRN PRN Reason: Indigestion/stomach pain Sodium Chloride () 5 - 15 ml IV UD PRN PRN Reason: SALINE FLUSH Last Admin: 01/16/20 04:59 Dose: 10 ml Documented by: Medical Necessity - Tobacco Use Smoking Status: Never smoker Assessment/Plan All Active Problems (Last Updated 01/15/20 @ 07:[address] Heather Sumner MD) 38 weeks gestation of (Acute) Gestational hypertension (Acute) Gestational diabetes mellitus (GDM) (Acute) Back pain (Resolved) Segmental and somatic dysfunction of lumbar region (Resolved) Segmental and somatic dysfunction of pelvic region (Resolved) Segmental and somatic dysfunction of sacral region (Resolved) This is a 29 year-old, G [3], P [2012 POD#2 s/p PLTCS, b/l salpingectomy doing well. -Rh positive - -Routine postop care -d/c home today
--- NOTE | 2020-01-17 07:54 | PCM.DC.SUM ---
Discharge Date and Diagnosis - Problem List Patient Problems: Active and Suspected Problems (Last Updated 01/15/20 @ 07:[address] Heather Sumner MD) 38 weeks gestation of (Acute) Gestational hypertension (Acute) Gestational diabetes mellitus (GDM) (Acute) Date of Admission: 01/15/20 Date of Discharge: 01/17/20 - Primary Discharge Diagnosis Acute Problems: Active Problems (Last Updated 01/15/20 @ 07:[address] Heather Sumner MD) 38 weeks gestation of (Acute) Gestational hypertension (Acute) Gestational diabetes mellitus (GDM) (Acute) Hospital Course and Treatment Operations: - - section, bilateral salpingectomy Procedures: None Summary of Care Provided: The patient is a 29 year old F 3 para 1011 admitted for scheduled primary at 38 4/7wga for prior hx shoulder dystocia and gestational hypertension. She had an uncomplicated section. She was out of bed, voiding without difficulty, passing flatus and tolerating PO and discharged to home on postop day #2. Patient Problems: Active and Suspected Problems (Last Updated 01/15/20 @ 07:[address] Heather Sumner MD) 38 weeks gestation of (Acute) Gestational hypertension (Acute) Gestational diabetes mellitus (GDM) (Acute) Subjective: She is sore, but pain helped with medication. Lochia is scant. It is getting easier to move around. Objective: AVSS - Physical Exam Vitals/I&O's: Vital Signs Temp Pulse Resp BP Pulse Ox 97.8 F 88 18 101/48 L 97 01/17/20 00:57 01/17/20 00:57 01/17/20 00:57 01/17/20 00:57 01/17/20 00:57 Oxygen Delivery Method Room Air Weight: 113.3 kg Body Mass Index (BMI) 45.6 Intake and Output for Last 24 Hours 01/15/20 01/16/20 01/17/20 23:59 23:59 23:59 Intake Total 5322.33 / 5322.33 988.33 / 988.33 Output Total 525 / 525 600 / 600 Balance 4797.33 / 4797.33 388.33 / 388.33 General: Alert, Oriented x3, Cooperative, No apparent distress HEENT: Atraumatic, Normocephalic Lungs: Clear to auscultation, Normal air movement Cardiovascular: Regular rate, Regular Rhythm, Normal S1, Normal S2 Abdomen: Soft, Non Tender, Non-Distended, Obese, - - Fundus firm and nontender Extremities: No edema, No Calf Tenderness Neurological: Neuro grossly intact Psych/Mental Status: Normal Affect, Appropriate, Alert and oriented to time, place, person, mood and affect Current Medications Acetaminophen (Tylenol) 1,000 mg PO Q6H [facility] Last Admin: 01/17/20 04:13 Dose: 1,000 mg Documented by: Bisacodyl (Dulcolax) 10 mg RECTAL UD PRN PRN Reason: If no BM Heparin Sodium (Porcine) (Heparin Na) 5,000 unit SC Q8 [facility] Last Admin: 01/17/20 05:38 Dose: 5,000 unit Documented by: Hydrocortisone (Hytone) 1 applic TOPICAL TID PRN PRN; Protocol PRN Reason: Discomfort Naloxone HCl 4 mg/ Dextrose 504 mls @ 0 mls/hr IV .Q0M PRN; Protocol PRN Reason: Respiratory depression Ibuprofen (Motrin) 600 mg PO Q6H [facility] Last Admin: 01/17/20 04:14 Dose: 600 mg Documented by: Methylergonovine Maleate (Methergine) 0.2 mg IM X1 PRN PRN Reason: Uterine Atony Naloxone HCl (Narcan) 0.02 mg IV Q1M PRN PRN Reason: RR <10 and pt unresponsive Ondansetron HCl (Zofran) 4 mg IV Q4H PRN PRN PRN Reason: Nausea Oxycodone HCl (Oxyir) 5 - 10 mg PO Q4H PRN PRN PRN Reason: Pain Score 4-10/10 Last Admin: 01/17/20 05:37 Dose: 10 mg Documented by: Prochlorperazine Edisylate (Compazine Iv) 10 mg IV Q6H PRN PRN PRN Reason: NAUSEA Senna/Docusate Sodium (Senokot-S, Alivia-Colace) 0 tablet PO DAILY [facility] Last Admin: 01/16/20 08:13 Dose: 2 tablet Documented by: Simethicone (Mylicon) 80 mg PO PCHS PRN PRN Reason: Indigestion/stomach pain Sodium Chloride () 5 - 15 ml IV UD PRN PRN Reason: SALINE FLUSH Last Admin: 01/16/20 04:59 Dose: 10 ml Documented by: Discharge Diet: No Restrictions Discharge Activity: Return to Normal Activity May resume sexual activity in: 4-6 weeks Lifting Restrict to (lbs):: 10 Home Medications: Medications to take at Discharge DiphenhydrAMINE [Benadryl] 25 mg PO PRN PRN 12/01/19 Tylenol Extra Strength 1,000 mg PO PRN PRN 12/01/19 Ibuprofen [Motrin] 600 mg PO Q8H PRN #30 tab 01/17/20 Oxycodone [Oxyir] 1 - 2 tab PO Q6H PRN PRN 7 Days #28 tablet 01/17/20 Senna/Docusate Sodium [Senokot-S] 1 - 2 tab PO DAILY #30 tab 01/17/20 Following Prescrptions Were Given to Patient: Ibuprofen [Motrin] 600 mg PO Q8H PRN #30 tab PRN Reason: pain Transmission Status: Pending to [facility] Oxycodone [Oxyir] 1 - 2 tab PO Q6H PRN PRN 7 Days #28 tablet PRN Reason: Pain Score 4-10/10 Transmission Status: Sent to [facility] Senna/Docusate Sodium [Senokot-S] 1 - 2 tab PO DAILY #30 tab Transmission Status: Pending to [facility] Primary Care Physician: Care Physician,No Primary [Primary Care Provider] - Please Follow Up With: Heather Fisher MD When: 1-2 weeks Please Follow Up With: Heather Fisher MD When: 6 weeks Disposition: Home Patient Condition:: Good Medical Necessity - Tobacco Use Smoking Status: Never smoker Meaningful Use Info Meaningful Use Diagnoses (Choose all that apply): None applicable
--- NOTE | 2020-01-17 08:01 | DCINST_ITS ---
Discharge Diet: No Restrictions Discharge Activity: Return to Normal Activity May resume sexual activity in: 4-6 weeks Lifting Restrictions: 10 lb Suture Line Care: Avoid Pulling/Pushing Remove Dressing in (days):: 5 Cleanse incision/area with: Soap & Water Additional Instructions: If you experience any of the following, contact your healthcare provider. * Bleeding that soaks a pad every hour for 2 hours * Fever 100.4 or higher * Unrelieved incision or abdominal pain * Swelling, redness, discharge or bleeding from your incision or episiotomy site * Your incision begins to separate * Problems urinating (including inability to urinate or burning while urinating). * Visual changes * Severe headache * Flu-like symptoms * Pain or redness in one of both of your breasts * Pain, warmth, tenderness or swelling in your legs, especially the calf area * Frequent nausea and vomiting * Symptoms of depression or anxiety If you experience any of the following, call 911 or go to the nearest Emergency Room. * Chest pain * Problems breathing * Seizure activity * Partial or complete paralysis of a body part, slurred speech, weakness or drooping of the face, or a sudden inability to walk or hold your balance Allergies/Adverse Reactions: Allergies Penicillins Allergy (Mild, Verified 01/15/20 06:18) Rash yeast infection ferrous fumarate [From 1 + Iron] Allergy (Verified 12/01/19 12:06) Rash folic acid [From 1 + Iron] Allergy (Verified 12/01/19 12:06) Rash vit,tx calc,iron,folic acd(less thn 1 mg) [From 1 + Iron] Allergy (Verified 12/01/19 12:06) Rash vitamins with calcium [From 1 + Iron] Allergy (Verified 12/01/19 12:06) Rash Medications to take at Discharge DiphenhydrAMINE [Benadryl] 25 mg PO PRN PRN 12/01/19 Tylenol Extra Strength 1,000 mg PO PRN PRN 12/01/19 Ibuprofen [Motrin] 600 mg PO Q8H PRN #30 tab 01/17/20 Oxycodone [Oxyir] 1 - 2 tab PO Q6H PRN PRN 7 Days #28 tablet 01/17/20 Senna/Docusate Sodium [Senokot-S] 1 - 2 tab PO DAILY #30 tab 01/17/20 The following prescriptions were given: Ibuprofen [Motrin] 600 mg PO Q8H PRN #30 tab PRN Reason: pain Transmission Status: Pending to [email or web address] Oxycodone [Oxyir] 1 - 2 tab PO Q6H PRN PRN 7 Days #28 tablet PRN Reason: Pain Score 4-10/10 Transmission Status: Sent to [facility] Senna/Docusate Sodium [Senokot-S] 1 - 2 tab PO DAILY #30 tab Transmission Status: Pending to [email or web address] Follow-Up: Call to make an appointment with your doctor for an incision check in 1-2 weeks. You will also need a 6 week post- follow up appointment. Test results from this visit will be discussed in further detail at your follow- up appointment, if applicable. Please Follow Up With: Heather Fisher MD When: 1-2 weeks Please Follow Up With: Heather Fisher MD When: 6 weeks Primary Care Physician: Care Physician,No Primary [Primary Care Provider] -
[2020-01-17] MEDS: Senna/Docusate Sodium 1 Tablet PO (08:56)
[2020-01-17 09:00] VITALS: BP 114/57; PULSE 83; RESP 18; TEMP 36.3; O2SAT 96
--- NOTE | 2020-01-17 12:17 | PN_ITS ---
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 Requested prescriptions sent to [facility]. All prescriptions re-prescribed to [facility] per patient request. Call placed to [facility] and message left on machine requesting cancelation of all scripts sent there. STROKE Vital Signs/Narrative: Vital Signs Temp Pulse Resp BP Pulse Ox 01/17/20 09:00 97.3 F L 83 18 114/57 L 96
--- NOTE | 2020-01-17 12:17 | PCM.PN.BLA ---
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 Requested prescriptions sent to [facility]. All prescriptions re-prescribed to [facility] per patient request. Call placed to [facility] and message left on machine requesting cancelation of all scripts sent there. STROKE Vital Signs/Narrative: Vital Signs Temp Pulse Resp BP Pulse Ox 01/17/20 09:00 97.3 F L 83 18 114/57 L 96
[2020-01-17 14:35] VITALS: BP 120/66; PULSE 84; RESP 16; TEMP 36.4; O2SAT 99
== END 2020-01-17 14:55 | disposition home or self-care (01) | DRG 785 ==
PROVIDERS: Admitting Provider Obstetrics & Gynecology; Referring Provider Obstetrics & Gynecology; Visit Provider Obstetrics & Gynecology
PROC: 10D00Z1 Extraction of Products of Conception, Low, Open Approach (ICD-10-PCS; CPT 59514; principal; 2020-01-15 07:15)
DX: O13.4 Gestational [pregnancy-induced] hypertension without significant proteinuria, complicating childbirth (principal); O24.420 Gestational diabetes mellitus in childbirth, diet controlled; E28.2 Polycystic ovarian syndrome; Z87.19 Personal history of other diseases of the digestive system; Z90.49 Acquired absence of other specified parts of digestive tract; Z88.0 Allergy status to penicillin; Z37.0 Single live birth; Z3A.38 38 weeks gestation of pregnancy; Z30.2 Encounter for sterilization; Z87.59 Personal history of other complications of pregnancy, childbirth and the puerperium
CPT/HCPCS: 80307; 82962; 85025; 85027; 86850; 86900; 86901; 88302; 88307; 99218; J7120; A4216; G0378; J2405